=== PATIENT | male | born 1995 | race Two or more races ===

== ENCOUNTER 2016-10-17 01:30 | Emergency (ER) | payer OTHER ==
[2016-10-17 02:20] LABS: ABSOLUTE NEUTROPHIL COUNT 8.8 K/mm3 (1.8-7.7); BASO % 0.3 % (0.2-1.0); EOS % 0.3 % (0.9-2.9); HEMOGLOBIN 14.4 gm/l (14.0-18.0); IMM NEUT% 0.3 % (0-1); LYMPH # 2.3 (1.0-4.8); LYMPH % 19.6 % (15-45); MEAN CELL VOLUME 89.7 fl (80.0-94.0); MEAN CORPUSCULAR HEMOGLOBIN 31.5 pg (27.0-31.0); MEAN CORPUSCULAR HGB CONC 35.1 g/dl (33.0-37.0); MEAN PLATELET VOLUME 11.3 fl (7.4-10.4); MONO # 0.7 (0.0-0.8); MONO % 5.9 % (4-12); NEUT % 73.6 % (43-75); PLATELET COUNT 230 K/mm3 (130-400); RED CELL DISTRIBUTION WIDTH 11.9 % (11.5-14.5)
[2016-10-17 02:26] LABS: URINE BILIRUBIN NEGATIVE (NEGATIVE); URINE BLOOD TRACE (NEGATIVE); URINE GLUCOSE (UA) NEGATIVE (NEGATIVE); URINE LEUKOCYTE ESTERASE NEGATIVE (NEGATIVE); URINE NITRITE NEGATIVE (NEGATIVE); URINE PROTEIN NEGATIVE (NEGATIVE); URINE UROBILINOGEN NORMAL (0-1 mg/dl)
[2016-10-17 02:28] LABS: URINE APPEARANCE CLEAR; URINE COLOR LIGHT YELLOW
[2016-10-17 02:38] LABS: ALB/GLOB RATIO 1.6 (>1.0); ALBUMIN 4.7 gm/dL (3.5-5.7); CALCIUM 9.3 mg/dL (8.6-10.3)
[2016-10-17 03:29] LABS: URINE BACTERIA 0; URINE EPITHELIAL CELLS 0 /hpf; URINE RBC 0-1 /hpf; URINE WBC 0-1 /hpf
[2016-10-17] MEDS ORDERED: Potassium Chloride ORAL SOLN 20 MEQ/15 ML UDCUP ONE (03:44)
[2016-10-17] MEDS ORDERED: LACTATED RINGERS 1,000 ML ONE (04:08)
[2016-10-17] MEDS ORDERED: LEVETIRACETAM 100 MG/1 ML 5ML VIAL IV ONE (06:06)
[2016-10-17] MEDS ORDERED: NS 0.9% (MINI-BAG PLUS) 100 ML IV ONE (06:07)
--- NOTE | 2016-10-17 07:42 | RAD ---
CHEST 2 VIEWS HISTORY: Syncope. Frontal and lateral chest radiographs dated 10/17/2016. COMPARISON: None. FINDINGS: FOCAL AIRSPACE OPACITY: No gross airspace consolidation. PLEURAL EFFUSION: None. CARDIOMEDIASTINAL SILHOUETTE: Nonenlarged. PNEUMOTHORAX: None identified. OSSEOUS STRUCTURES: No grossly destructive lesions. IMPRESSION: No acute cardiopulmonary process noted.
--- NOTE | 2016-10-17 08:19 | CT ---
HEAD CT WITHOUT CONTRAST HISTORY: Found unconscious. No intravenous contrast administered. Contiguous axial images acquired from skull base to vertex. COMPARISON:None. BRAIN VOLUME:Grossly unremarkable for patient age. VENTRICULAR SIZE:No gross ventriculomegaly. FOCAL MASS EFFECT:None. ACUTE INTRACRANIAL HEMORRHAGE:None. CALVARIUM:Grossly intact. VISIBLE PARANASAL SINUSES AND MASTOID AIR CELLS:Grossly clear. IMPRESSION: No gross mass effect, ventriculomegaly, or acute intracranial hemorrhage. Preliminary report relayed to the Emergency Medicine medical service by Dr. Thornton on 10/17/2016 at 0450 hours.
== END 2016-10-17 06:34 | disposition home or self-care (01) ==
LOC: ED 01:30
DX: R55 Syncope and collapse (principal); R51 Headache; D72.829 Elevated white blood cell count, unspecified; F17.210 Nicotine dependence, cigarettes, uncomplicated
CPT/HCPCS: 85379; 85025; 80053; 83735; 84484; 81001; 71020; 70450; 99284 ×2; 96374; 93005; J7120; A9270